=== PATIENT | male | born 1930 | race Caucasian/White ===

== ENCOUNTER → 2016-10-21 | Outpatient (CLI) | payer MEDICARE, BC ==
[~2016-10-21] MED LIST: DIVALPROEX PO; DONEPEZIL HCL10 MG PO; HYDROCODONE-APA1 T61 PO; IRON1 TAB PO; KEFLEX500 M1 PO; LAMOTRIGINE PO; LEVOTHYROXINE25 MC1 PO; NAMENDA XR21 MG; PAIN RELIEF EX500 MG PO; PENTOXIFYLLINE PO; ROBAXIN 750750 M1 DOB; SEROQUEL25 MG PO; TAMSULOSIN PO; [UNRECOGNIZED DRUG - OTHER]; [UNRECOGNIZED DRUG - REMARK]
--- NOTE | ~2016-10-21 | CT130 ---
[facility] A Service of [facility] & [facility] RADIOLOGY TEXT RESULTS PATIENT: MERYL DEVLIN [facility] UNIT #: [id number] AGE: [address]: Chilango Spears MD SEX: M ORDER DR: [id number] [facility] [address] [facility]. [place], [place] [address] [id number] O MR#: [id number] Acc #: [id number] NAME: MERYL DEVLIN : 1930 SEX: M STUDY DATE/TIME: 10/21/2016 UNIT: [facility] ROOM: STUDY DESCRIPTION: CT Upper Ext Rt Wo Cont Attending Physician: Chilango Spears M.D. Referring Physician: Chilango Spears M.D. Ordering Physician: Chilango Spears M.D. Primary Care Physician: Nimo Betancourt M.D. MEDICAL IMAGING REPORT This report is preliminary unless electronic signature is present EXAM CT right shoulder without contrast - with coronal and sagittal reconstructions, 10/21/2016. COMPARISON Right shoulder radiographs 05/18/2016. HISTORY Order states right shoulder osteoarthritis. History sheet states osteoarthritis for several years. Surgery planned for November 01, 2016. No prior shoulder surgery or injury. TECHNIQUE This CT exam was performed with one or more of the following radiation dose reduction techniques: automatic exposure control, adjustment of mA and/or kV according to patient size, and iterative reconstruction. FINDINGS There is advanced glenohumeral arthrosis with joint space narrowing, near [id number] appearance, osteophyte formation, subarticular sclerosis, and a tiny subarticular cyst. There is a mild effusion and biceps tenosynovitis. There is a large inferomedial humeral head osteophyte. Several loose bodies are noted in the axillary recess anteriorly. There is also a loose body in the subscapularis recess of the glenohumeral joint space. The AC joint demonstrates mild arthrosis. There is supraspinatus tendon calcification. There is also a small amount of calcification in the region of the subscapularis tendon. Visualized right thorax is unremarkable except for old healed right fourth [facility] A Service of [facility] & [facility] RADIOLOGY TEXT RESULTS PATIENT: MERYL DEVLIN LOCATION: [facility] : 29 UNIT #: [id number] AGE: [address]: Chilango Spears MD SEX: M ORDER DR: and fifth posterolateral rib fractures. IMPRESSION 1. Advanced glenohumeral moderate acromioclavicular joint arthrosis. 2. Glenohumeral joint effusion with calcified loose bodies. 3. Bicipital tenosynovitis. 4. Old right fourth and fifth posterolateral rib fractures. Dictated by... Maria Luz Pool M.D. THIS IS AN ELECTRONICALLY VERIFIED REPORT Maria Luz Pool M.D. at 10/25/2016 10:50 AM GARCIA/leslee TD: 10/25/2016 00:31 JOB #: [id number] MEDICAL IMAGING REPORT COPY
[2016-10-21 12:18] LABS: HEMATOCRIT 43.9 % (38.0-50.0); HEMOGLOBIN 14.7 gm/dL (13.0-16.0); MEAN CORPUSCULAR HEMOGLOBIN 30.9 PG (28-34); MEAN CORPUSCULAR HGB CONC 33.6 g/dL (30-36); MEAN PLATELET VOLUME 7.3 FL (6.5-11.5); RED BLOOD COUNT 4.77 X10e (3.90-5.60); RED CELL DISTRIBUTION WIDTH 12.5 % (11.0-15.5); WHITE BLOOD COUNT 7.2 X10e3 (4.0-10.5)
[2016-10-21 12:29] LABS: URINE BILIRUBIN NEG (NEG); URINE BLOOD NEG (NEG); URINE COLOR YELLOW; URINE GLUCOSE NEG (NEG); URINE KETONE NEG (NEG); URINE LEUKOCYTE ESTERASE NEG (NEG); URINE NITRATE NEG (NEG); URINE PROTEIN NEG (NEG); URINE UROBILINOGEN 0.2 MG/DL (NEG)
[2016-10-21 12:34] LABS: URINE APPEARANCE CLEAR; URINE SOURCE CLEAN CATCH
[2016-10-21 12:54] LABS: CULTURE INDICATED? NO
[2016-10-21 13:07] LABS: BLOOD UREA NITROGEN 23 mg/dL (9-23); CALCIUM SERUM 9.6 mg/dL (8.4-10.2); CARBON DIOXIDE 31 mmol/L (22-31); CHLORIDE 103 mmol/L (100-111); CREATININE SERUM 1.1 mg/dL (0.6-1.4); GLOM FILT RATE Estimated ABOVE60 mL/min (>60); GLUCOSE FASTING 116 mg/dL (70-110); POTASSIUM 4.9 mmol/L (3.5-5.1); SODIUM 141 mmol/L (135-145)
== END | disposition home or self-care (01) ==
LOC: CAMB 08:27
PROVIDERS: Orthopaedic Surgery
DX: M19.011 Primary osteoarthritis, right shoulder (principal); M25.411 Effusion, right shoulder; M24.011 Loose body in right shoulder; M75.21 Bicipital tendinitis, right shoulder
CPT/HCPCS: 36415; 73200; 80048; 81003; 85027; 87070

== ENCOUNTER 2016-11-03 07:13 | Inpatient (IN) | payer MEDICARE, BC ==
--- NOTE | ~2016-11-03 | CR230 ---
[facility] A Service of [facility] RADIOLOGY TEXT RESULTS PATIENT: MERYL DEVLIN LOCATION: [place] [address] : 29 UNIT #: [id number] AGE: [address]: Chilango Spears MD SEX: M ORDER DR: [id number] [facility] [address] [facility]. [place], [place] [address] [id number] I MR#: [id number] Acc #: [id number] NAME: MERYL DEVLIN : 1930 SEX: M STUDY DATE/TIME: 11/03/2016 1408 UNIT: [facility] ROOM: [facility] [place][note 2] STUDY DESCRIPTION: CR Shoulder Min 2 View Rt Attending Physician: Chilango Spears M.D. Ordering Physician: Chilango Spears M.D. Primary Care Physician: Nimo Betancourt M.D. MEDICAL IMAGING REPORT This report is preliminary unless electronic signature is present EXAM Right shoulder 2 views 11/03/2016 1408 hours HISTORY Postop shoulder replacement. COMPARISON CT right shoulder 10/21/2016 FINDINGS 2 views of the right shoulder demonstrate interval shoulder replacement with a screwed ball component at the glenoid and a long stem noncemented cup component at the humerus. The alignment is anatomic. No fracture seen. IMPRESSION Postop reverse shoulder replacement with screwed ball component at the glenoid and noncemented long stem cup component at the humerus in anatomic alignment. No fracture seen. Dictated by... Layne Estrada M.D. THIS IS AN ELECTRONICALLY VERIFIED REPORT Layne Estrada M.D. at 11/04/2016 9:22 AM Lana TD: 11/03/2016 18:07 JOB #: [id number] MEDICAL IMAGING REPORT Page 1 of 1 COPY
--- NOTE | ~2016-11-03 | OR ---
Unit #: [id number] #: [id number] Patient: MERYL HARRIS [id number] [address] [address] [id number] I MR#: [id number] NAME: MERYL HARRIS ROOM: 452 Date of Procedure: 11/03/2016 Admission Date: 11/03/2016 Surgeon: Chilango Spears M.D. : 1930 Attending Physician: Chilango Spears M.D. Primary Care Physician: Nimo Betancourt M.D. OPERATIVE REPORT PREOPERATIVE DIAGNOSIS Right shoulder glenohumeral joint osteoarthritis. POSTOPERATIVE DIAGNOSES 1. Right shoulder glenohumeral joint osteoarthritis. 2. Right shoulder biceps tenosynovitis. PROCEDURES PERFORMED 1. Right reverse shoulder arthroplasty. 2. Right shoulder biceps tenodesis. IMPLANTS 1. [employer] Surgical P2 baseplate with a 32, neutral glenosphere. 2. [employer] Surgical AltiVate size 8 press-fit humeral stem with a 32, +4, semiconstrained humeral socket liner. NON DESTRUCTIVE TESTING SCIENTIST Annelise Kumar APRN, PLASTIC PARTS DESIGNER. ANESTHESIA General with interscalene nerve block. ESTIMATED BLOOD LOSS 150 mL. COMPLICATIONS None apparent. DRAINS None. SPECIMENS Humeral head to Pathology. INDICATIONS FOR PROCEDURE Mr. Harris is an 86-year-old gentleman with end-stage right shoulder glenohumeral joint osteoarthritis. He has medial wear. Based upon the degree of medial wear as well as his age, we have discussed reverse versus total shoulder arthroplasty and selected a reverse shoulder arthroplasty. Risks, benefits, and alternatives have been reviewed and he elected to proceed. Unit #: [id number] #: [id number] Patient: MERYL HARRIS DESCRIPTION OF PROCEDURE The patient was identified in the preoperative holding area. The operative site was marked. A preoperative block was performed. Preoperative antibiotics were administered. The patient was brought to the operating room and placed supine on the operating table. A general anesthetic was induced. The patient was positioned in the beach-chair position. The right upper extremity was prepped and draped in sterile fashion. A standard deltopectoral approach was performed. Dissection was carried down through subcutaneous tissues. The cephalic vein was taken medially with pectoralis major muscle. The subdeltoid space was developed. The rotator cuff was intact. The long head of the biceps tendon sheath was opened. There was a large amount of fluid evacuated. There was proliferative tenosynovium overlying the biceps. A biceps tenodesis was then performed with #2 FiberWire to the superior border of the pectoralis major tendon. The biceps tendon sheath was opened up to the rotator interval and the biceps excised proximally. Direct subscapularis peel was performed and the shoulder was dislocated anteriorly. The curved osteotome was utilized to remove osteophytes circumferentially around the humeral head. The humeral head osteotomy was then performed with the guide in approximately 30 degrees of humeral retroversion. The head was dislocated posteriorly and attention was turned to glenoid exposure. The glenoid was accessed with a circumferential capsular labral release. The capsule was released off the inferior margin of the glenoid. We still had some difficulty with access to the most posterior-inferior quadrant. There was a very tight thickened band of capsular tissue inferiorly. This was carefully dissected with Metzenbaum scissors and released. The axillary nerve was identified by digital palpation throughout this portion of the procedure. The excursion of the humeral head was then dramatically improved after this capsular release. We then had full access to the glenoid. The desired starting point on the glenoid was marked out. The anterior and inferior glenoid osteophytes were removed. A small amount of osteophyte was removed as well from the posterior rim. We then drilled the starting center hole. This was measured and was actually short as about 18 mm. We therefore directed more posteriorly in the scapular spine along the alternative center line. Here, we achieved much better purchase with the screw length of approximately 28 mm. The reaming tap was inserted. We reamed sequentially down to the desired depth. The glenoid was extremely sclerotic. We did ream down to the desired depth with good healthy bleeding bone however. Once we had good bleeding bone, the tap was removed and then we inserted the baseplate. This achieved excellent purchase such that further attempts to rotate the baseplate resulted in scapular rotation. Four peripheral locking screws were placed. A 32 neutral glenosphere was placed. Attention was turned back to the humerus. The humerus was sized up to a size 8 with the hand reamers. A size 10 was actually fairly tight and was unable to be fully seated to the desired depth. We then reamed the proximal humeral socket. We selected a size 10 stem. This had good, so the real stem was opened and impacted in place and had good purchase and stability. We then trialed multiple humeral socket liner ultimately selecting a 32, +4, semiconstrained liner. The real liner was impacted in place. The decision was made then to actually repair the subscapularis. Three bone tunnels were drilled around the lesser tuberosity and then the humeral metaphysis. Three FiberTape sutures were passed and used to perform a subscapularis repair. This was reinforced with a repair of the Unit #: [id number] #: [id number] Patient: MERYL HARRIS rotator interval tissue with #2 FiberWire. The arm was taken through range of motion. The repair was stable. The wound was irrigated. The drain was not required. The wound was closed with 0 Vicryl, 2-0 Vicryl, and a running 4-0 Monocryl in the skin. Steri-Strips and sterile dressings were applied. DISPOSITION Stable to the recovery room. Dictated by... Senia Matias/zak TD: 11/04/2016 05:49 JOB #: [id number] OPERATIVE REPORT Page 1 of 1 X Chilango Spears MD PROCEDURE OPERATIVE NOTE
--- NOTE | ~2016-11-03 | DS ---
Unit #: [id number] #: [id number] Patient: MERYL DEVLIN [id number] [address] [address] [id number] I MR#: [id number] NAME: MERYL DEVLIN ROOM: 452 Age: 86 Sex: M Admission Date: 11/03/2016 : 1930 Discharge Date: 11/04/2016 Attending Physician: Chilango Spears M.D. Primary Care Physician: Nimo Betancourt M.D. DISCHARGE SUMMARY REVISED REPORT ADMITTING DIAGNOSIS Right glenohumeral joint arthritis. DISCHARGE DIAGNOSIS Right glenohumeral joint arthritis, status post right reversed shoulder arthroplasty. SECONDARY DIAGNOSES Include: 1. Dementia. 2. Anemia. 3. Hypothyroidism. 4. Benign prostatic hypertrophy. 5. Diverticulitis. 6. Esophageal strictures. 7. Peripheral vascular disease. 8. Hyperlipidemia. PROCEDURE On 11/03/2016, the patient underwent a right reversed shoulder arthroplasty. Please see operative report for further details. BRIEF HISTORY Mr. Gorman is an 86-year-old male who we had been treating for right glenohumeral joint arthritis. He had ceased to receive any pain relief from conservative treatment. We discussed a right reversed shoulder arthroplasty with the patient. The risks, benefits, and alternatives were discussed with patient and he elected to proceed with surgery on 11/03/2016. HOSPITAL COURSE On the night of surgery, the patient was transferred to the orthopedic unit for postoperative care. The night of surgery was uneventful and the patient remained stable. On postop day #1, the patient remained stable. He was afebrile and his vital signs were stable. His right upper extremity incision was clean, dry, and intact. There was no surrounding erythema, warmth, or hematoma. His neurovascular was intact in the median, ulnar, and radial nerves. He had normal sensation to light touch in all five digits. X-ray was reviewed of the right shoulder, which revealed that he was status post Unit #: [id number] #: [id number] Patient: MERYL DEVLIN right reversed shoulder arthroplasty. Hardware was in correct anatomic alignment. There was no evidence of loosening or migration. The patient is nonweightbearing of the right upper extremity in a sling. He worked with physical therapy earlier this morning on pendulums as well as range of motion of the elbow, wrist, and hand. He was on aspirin and placed in SCDs for DVT prophylaxis. His hemoglobin was 11.9. His white blood cell count was 12. The patient was not complaining of shortness of breath or cough. He will continue use of his incentive spirometer 10 times per hour while awake. The patient feels that he is ready for discharge back to his assisted living today. I spoke with his daughter on the phone as well who states that the assisted living facility is aware that he just had surgery and will have people available to help with meals, bathing, and physical therapy. She is in agreement that he is safe to discharge back to his assisted living. CONDITION AT DISCHARGE Stable. DISPOSITION The patient will be discharged back to the assisted living facility that he resides in. There they have staff to help with bathing, housework, meals, and physical therapy. DISCHARGE MEDICATIONS 1. Acetaminophen 500 mg p.o. b.i.d. as needed. 2. SEROquel 25 mg p.o. daily. 3. Namenda 1 capsule every evening. 4. Donepezil 10 mg p.o. at bedtime. 5. Iron 1 tab p.o. every Tuesday. 6. Synthroid 25 mcg p.o. daily. 7. Divalproex 250 mg p.o. b.i.d. 8. LaMICtal 25 mg p.o. b.i.d. 9. Pentoxifylline 400 mg p.o. b.i.d. 10. Flomax 4 mg p.o. daily. 11. [place] 5-325 mg 1-2 tabs p.o. q.4 hours p.r.n. A prescription was written for the patient to dispense 65 tabs. DISCHARGE INSTRUCTIONS AND FOLLOWUP 1. The patient will follow up with Dr. Spears in two weeks' time for x-rays of the right shoulder. 2. He will remain nonweightbearing of the right upper extremity and in his sling. 3. He may remove his sling 2-3 times per day to perform pendulum as well as range of motion of the elbow, wrist, and hand. 4. He will perform daily dressing changes to the right upper extremity incision. 5. He may shower, but he is not to get his incision well. He must keep an occlusive dressing over the incision site when showering. Dictated by... Sylvie Britt APRN for Senia Matias Unit #: [id number] #: [id number] Patient: MERYL DEVLIN TD: 11/04/2016 11:30 JOB #: [id number] DISCHARGE SUMMARY Page 1 of 1 X SYLVIE BRITT APRN X DISCHARGE SUMMARY
--- NOTE | ~2016-11-03 | DS ---
Unit #: [id number] #: [id number] Patient: MERYL DEVLIN [id number] [address] [address] [id number] I MR#: [id number] NAME: MERYL DEVLIN ROOM: 452 Age: 86 Sex: M Admission Date: 11/03/2016 : 1930 Discharge Date: 11/04/2016 Attending Physician: Chilango Spears M.D. Primary Care Physician: Nimo Betancourt M.D. DISCHARGE SUMMARY ADMITTING DIAGNOSIS Right glenohumeral joint arthritis. DISCHARGE DIAGNOSIS Right glenohumeral joint arthritis, status post right reverse shoulder arthroplasty. SECONDARY DIAGNOSES 1. Dementia. 2. Anemia. 3. Hypothyroidism. 4. BPH. 5. Diverticulitis. 6. Esophageal strictures. 7. Peripheral vascular disease. 8. Hyperlipidemia. PROCEDURE On 11/03/2016, the patient underwent a right reverse shoulder arthroplasty. Please see operative report for further details. BRIEF HISTORY Mr. Jaffe is an 86-year-old male who we have been treating for right glenohumeral joint arthritis. He is to receive any pain relief from conservative treatment. We discussed a right reverse shoulder arthroplasty with the patient. The risks, benefits, and alternatives were discussed with the patient and he elected to proceed with surgery on 11/03/2016. HOSPITAL COURSE On the night of surgery, the patient was transferred to the orthopedic unit for postoperative care. The night of surgery was uneventful and the patient remained stable. On postoperative day #1, the patient remained stable. He was afebrile and his vital signs were stable. His right upper extremity incision was clean, dry, and intact. There was no surrounding erythema, warmth, or hematoma. His neurovascular was intact in the median, ulnar, and radial nerves. He had normal sensation to light touch in all 5 digits. X-ray was reviewed of the right shoulder, which revealed that he was status post right reverse shoulder arthroplasty. Hardware was in correct anatomical alignment. There was no evidence of loose or migration. The patient is nonweightbearing in the right upper extremity and is in a sling. He Unit #: [id number] #: [id number] Patient: MERYL DEVLIN worked with physical therapy earlier this morning on pendulum as well as range of motion of the elbow, wrist, and hand. He was on aspirin and placed on SCDs for DVT prophylaxis. His hemoglobin was 11.9. His white blood cell count was 12.0. The patient was not complaining of shortness of breath or cough. He will continue to use of his incentive spirometer 10 times per hour while awake. The patient feels that he is ready for discharge back to assisted living today. I spoke with his daughter on the phone as well, who states that the assisted living facility is aware he just had surgery and will have people available to help with meals, bathing, and physical therapy. It was agreed that he is safe to discharge back to his assisted living. DISCHARGE CONDITION Stable. DISPOSITION The patient will be discharged back to the assisted living facility that he resides in. There, they have staff to help with bathing, housework, meals, and physical therapy. DISCHARGE MEDICATIONS Acetaminophen 500 mg p.o. b.i.d. as needed; Seroquel 25 mg p.o. daily; Namenda one capsule every evening; donepezil 10 mg p.o. at bedtime; iron one tab p.o. every Tuesday; Synthroid 25 mcg p.o. daily; divalproex 20 mg p.o. b.i.d.; Lamictal 25 mg p.o. b.i.d.; pentoxifylline 400 mg p.o. b.i.d.; Flomax 0.4 mg p.o. daily; [place] 5/325 mg one to two tabs p.o. q.4 hours p.r.n., prescription was written for the patient to dispense 65 tablets. DISCHARGE INSTRUCTIONS AND FOLLOWUP The patient will follow up with Dr. Spears in 2 weeks' time for x-rays of the right shoulder. He will remain nonweightbearing of the right upper extremity and in a sling. He may remove his sling 2 to 3 times per day to perform pendulum as well as range of motion of the elbow, wrist, and hand. He will perform daily dressing changes to the right upper extremity incision. He may shower, but he is to not get his incision wet. He must keep an occlusive dressing over the incision site when showering. Dictated by... DONNY Lloyd/zak TD: 11/05/2016 05:37 JOB #: [id number] DISCHARGE SUMMARY Page 1 of 1 X SYLVIE BRITT APRN DISCHARGE SUMMARY
[~2016-11-03 07:13] MED LIST changes: -DIVALPROEX PO; -DONEPEZIL HCL10 MG PO; -HYDROCODONE-APA1 T61 PO; -IRON1 TAB PO; -LAMOTRIGINE PO; -PENTOXIFYLLINE PO; -ROBAXIN 750750 M1 DOB; -SEROQUEL25 MG PO; -TAMSULOSIN PO
[2016-11-03] MEDS ORDERED: DIVALPROEX PO (07:54)
[2016-11-03] MEDS ORDERED: LAMOTRIGINE PO (07:56)
[2016-11-03] MEDS ORDERED: PENTOXIFYLLINE PO (07:57)
[2016-11-03] MEDS ORDERED: DONEPEZIL HCL10 MG PO (07:58)
[2016-11-03] MEDS ORDERED: SEROQUEL25 MG PO (07:59)
[2016-11-03] MEDS ORDERED: TAMSULOSIN PO (08:01)
[2016-11-03] MEDS ORDERED: IRON1 TAB PO (08:02)
[2016-11-04 04:44] LABS: BASOPHIL% 0.1 % (0-2.5); EOSINOPHIL% 0.1 % (0.0-7.0); HEMATOCRIT 36.6 % (38.0-50.0); HEMOGLOBIN 11.9 gm/dL (13.0-16.0); LYMPHOCYTE# 0.4 X10e3 (1.0-3.5); LYMPHOCYTE% 3.4 % (17.0-45.0); MEAN CELL VOLUME 92.1 FL (83-96); MEAN CORPUSCULAR HGB CONC 32.6 g/dL (30-36); MEAN PLATELET VOLUME 8.1 FL (6.5-11.5); MONOCYTE# 1.3 X10e3 (0-1.0); MONOCYTE% 10.6 % (3.0-12.0); NEUTROPHIL# 10.3 X10e3 (1.5-7.1); NEUTROPHIL% 85.8 % (40-75); PLATELET COUNT 242 X10e3 (140-420); RED BLOOD COUNT 3.97 X10e (3.90-5.60); RED CELL DISTRIBUTION WIDTH 12.7 % (11.0-15.5)
[2016-11-04 04:49] LABS: DIFF IND NO
[2016-11-04] MEDS ORDERED: HYDROCODONE-APA1 T61 PO (13:52)
== END 2016-11-04 17:00 | disposition home or self-care (01) | DRG 483 ==
LOC: CSUR 07:13 → CPACUOF 14:00 → C4B 18:23
PROVIDERS: Orthopaedic Surgery
PROC: 0RRJ00Z Replacement of Right Shoulder Joint with Reverse Ball and Socket Synthetic Substitute, Open Approach (ICD-10-PCS; principal; 2016-11-03 10:00)
DX: M19.011 Primary osteoarthritis, right shoulder (principal); F03.90 Unspecified dementia, unspecified severity, without behavioral disturbance, psychotic disturbance, mood disturbance, and anxiety; I73.9 Peripheral vascular disease, unspecified; M65.811 Other synovitis and tenosynovitis, right shoulder; E78.5 Hyperlipidemia, unspecified; E03.9 Hypothyroidism, unspecified; Z98.49 Cataract extraction status, unspecified eye; Z83.3 Family history of diabetes mellitus
CPT/HCPCS: 73030; 85025; 94010; 94760; 97110; 97116; 97161; C1776; G8978-GP; G8979-GP; J0690; J2250; J2270; J2795; J3010

== ENCOUNTER 2016-11-26 20:34 | Emergency (ER) | payer MEDICARE, BC ==
--- NOTE | ~2016-11-26 | CR207 ---
[facility] A Service of [facility] RADIOLOGY TEXT RESULTS PATIENT: MERYL DEVLIN LOCATION: SED : 29 UNIT #: [id number] AGE: [address]: Aleshia Burgos MD SEX: M ORDER DR: [id number] [place] [address] [id number] E MR#: [id number] Acc #: [id number] NAME: MERYL DEVLIN : 1930 SEX: M STUDY DATE/TIME: 11/26/2016 20:45 UNIT: SED ROOM: STUDY DESCRIPTION: CR Pelvis Min 3 Views Attending Physician: Aleshia Burgos M.D. Ordering Physician: Aleshia Burgos M.D. Primary Care Physician: Nimo Betancourt M.D. MEDICAL IMAGING REPORT This report is preliminary unless electronic signature is present. EXAM Pelvis series, 11/26/2016. HISTORY An 86-year-old male in the ED complaining of new onset back pain and pelvic pain today. TECHNIQUE AP and bilateral oblique radiographs of the pelvis were obtained as requested. FINDINGS No fracture, dislocation or other acute osseous abnormality is demonstrated. Moderate degenerative arthropathy involving both hips. IMPRESSION 1. No acute osseous abnormality. 2. Bilateral degenerative hip arthropathy. Dictated by... Ady Rebolledo M.D. THIS IS AN ELECTRONICALLY VERIFIED REPORT Ady Rebolledo M.D. at 11/29/2016 5:59 AM NAOMI/adali TD: 11/27/2016 18:02 JOB #: [id number] MEDICAL IMAGING REPORT [facility] A Service of [facility] RADIOLOGY TEXT RESULTS PATIENT: MERYL DEVLIN LOCATION: SED : 29 UNIT #: [id number] AGE: [address]: Aleshia Burgos MD SEX: M ORDER DR: Page 1 of 1
[~2016-11-26 20:34] MED LIST changes: +DIVALPROEX PO; +DONEPEZIL HCL10 MG PO; +HYDROCODONE-APA1 T61 PO; +IRON1 TAB PO; +LAMOTRIGINE PO; +PENTOXIFYLLINE PO; +SEROQUEL25 MG PO; +TAMSULOSIN PO
[2016-11-26] MEDS ORDERED: ROBAXIN 750750 M1 DOB (22:06)
== END 2016-11-26 22:18 | disposition home or self-care (01) ==
LOC: SED 20:34
DX: M13.852 Other specified arthritis, left hip (principal); M13.851 Other specified arthritis, right hip; M62.838 Other muscle spasm; E07.9 Disorder of thyroid, unspecified
CPT/HCPCS: 72190; 96372; 99283; J2360

== ENCOUNTER → 2017-01-14 | Outpatient (CLI) | payer MEDICARE, BC ==
[~2017-01-14] MED LIST changes: +ROBAXIN 750750 M1 DOB
--- NOTE | ~2017-01-14 | MR17 ---
[facility] A Service of [facility] RADIOLOGY TEXT RESULTS PATIENT: MERYL DVELIN LOCATION: [facility] : 29 UNIT #: [id number] AGE: [address]: ANA OSBORNE MD SEX: M ORDER DR: [id number] [facility] [address] [facility]. [place], [place] [address] [id number] O MR#: [id number] Acc #: [id number] NAME: MERYL DEVLIN : 1930 SEX: M STUDY DATE/TIME: 01/14/2017 20:58 UNIT: [facility] ROOM: STUDY DESCRIPTION: MR Brain WWo Contrast Ordering Physician: Valarie Osborne M.D. Primary Care Physician: Nimo Betancourt M.D. MRI CENTER REPORT This report is preliminary unless electronic signature is present. EXAM MR brain 01/14 INDICATIONS Loss of balance with insomnia for 1 week. Fall yesterday. History of dementia. TECHNIQUE Multisequence multiplanar imaging was performed through the brain with administration of 11 mL of MultiHance contrast. COMPARISON STUDIES Comparison made with head CT from 03/31/2016. FINDINGS Diffusion imaging reveals no acute or subacute ischemia. There is generalized atrophy. Ventricular size and configuration are within normal limits. T2 hyperintensities in the white matter are consistent with chronic small vessel ischemic disease. No masses are seen, and there is no pathologic contrast enhancement. The craniovertebral junction is normal. There is a chronic fracture at the base of the dens. This was seen on cervical spine CT from 07/04/2015. Major intracranial flow voids are maintained. IMPRESSION 1. No acute findings in the brain. No evidence of acute or subacute infarct. No hemorrhage. 2. No masses or pathologic contrast enhancement. 3. Atrophy with chronic small vessel ischemic disease in the white matter. 4. Chronic fracture at the base of the dens. This is seen on the of the CT cervical spine from 07/04/2015. [facility] A Service [facility] RADIOLOGY TEXT RESULTS PATIENT: MERYL DEVLIN [facility] UNIT #: [id number] AGE: [address]: ANA OSBORNE MD SEX: M ORDER DR: Dictated by... Melvin Hughes Jr., M.D. THIS IS AN ELECTRONICALLY VERIFIED REPORT Melvin Hughes Jr., M.D. at 01/18/2017 11:21 AM LAMIN/leeann TD: 01/17/2017 17:37 JOB #: [id number] MRI CENTER REPORT Page 1 of 1 COPY
== END | disposition home or self-care (01) ==
LOC: SMRI 16:45 → CMRI 19:58 → SMRI 20:00
DX: R26.89 Other abnormalities of gait and mobility (principal); R90.82 White matter disease, unspecified; G31.9 Degenerative disease of nervous system, unspecified
CPT/HCPCS: 70553; A9577